=== PATIENT | male | born 2000 | race Caucasian/White ===

== ENCOUNTER 2019-10-30 17:12 | Emergency (ER) | payer SELFPAY ==
[2019-10-30 17:13] VITALS: BP 144/99; PULSE 120; RESP 16; TEMP 36.8; O2SAT 100; BMI 16.7
--- NOTE | 2019-10-30 18:25 | RAD_ITS ---
STUDY: X-RAY CHEST REASON FOR EXAM: Male, 18 years old. Shortness of breath TECHNIQUE: Frontal view of the chest COMPARISON: None. FINDINGS: The lungs are clear. There are no pleural effusions. There is no pneumothorax. The heart is normal in size. The visualized osseous structures are within normal limits. RAD/Chest 1 View (Portable) IMPRESSION: No acute thoracic pathology. Electronically Signed: Evan Delgado, at 18:42 EST Tel , Service support ,
[2019-10-30] MEDS: 0.9% Normal Saline 1,000 ML 1000 ML IV (18:40)
[2019-10-30] MEDS: DiphenhydrAMINE 50 MG/ML Syringe 25 MG IV (18:41)
[2019-10-30] MEDS: Metoclopramide 10 MG/2 ML Vial IV (18:41)
[2019-10-30 18:56] LABS: Absolute Lymphocyte Count 2.32 X10^3/uL (0.83-4.51); Basophil# 0.04 X10^3/uL; Basophil% 0.3 % (0-1); Eosinophil# 0.04 X10^3/uL; Eosinophils% 0.3 % (0-5); Hematocrit 47.6 % (40-54); Hemoglobin 16.1 g/dL (13.0-16.5); Lymphocyte # 2.32 X10^3/ul (4.0); Lymphocyte % 18.8 % (19-41); Mean Corp Hgb Conc 33.8 g/dL (32-36); Mean Corpuscular Hgb 29.5 pg (27.0-32.0); Mean Corpuscular Volume 87.3 fL (80-94); Mean Platelet Vol. 9.5 fl (6.2-12.0); Monocyte# 1.89 X10^3/uL; Monocyte% 15.3 % (0-10); NRBC Flagged by Analyzer 0 % (0-5); Neutrophil # 8.03 X10^3/uL (2.7-7.7); POSITIVE DIFFERENTIAL YES; Platelet Count 266 K/mm3 (150-450); RBC Distribution Width CV 11.9 % (11.6-14.6); RBC Distribution Width SD 38.3 fl (35.1-43.9); Red Blood Count 5.45 M/mm3 (4.6-6.2); White Blood Count 12.4 K/mm3 (4.4-11.0)
[2019-10-30 19:04] LABS: Differential Indicated SCAN CRITERIA MET
[2019-10-30 19:14] LABS: D-Dimer Quantitative (DVT/PE) 0.39 FEU/ug/m (0.27-0.49)
[2019-10-30 19:15] LABS: Anion Gap 2 (5-15); BUN 6 mg/dL (7-18); BUN/Creat Ratio 7.2 RATIO (10-20); Calcium,Total 8.8 mg/dL (8.5-10.1); Chloride 106 mmol/L (98-107); Creatinine, Serum 0.84 mg/dL (0.70-1.30); EST Glomerular Filtration Rate 124 mL/min (>60); Est Glom Filt Rate - Afr Amer 151 mL/min (>60); Glucose 79 mg/dL (74-106); Potassium 3.5 mmol/L (3.5-5.1); Sodium Level 140 mmol/L (136-145)
[2019-10-30 19:19] LABS: Carboxyhemoglobin Frac (CO) 2.4 % (0.0-1.5)
[2019-10-30 19:28] LABS: Platelet Estimate ADEQUATE (ADEQ); Red Cell Morphology NORM C+C NORMAL (NORM C&C)
--- NOTE | 2019-10-30 20:27 | ED.DEP ---
ED Disposition - Plan for ED Patient: Instructions: BRONCHITIS, No Antibiotic (Adult) Prescriptions: Benzonatate [Tessalon Perle] 200 mg PO TID PRN PRN #20 capsule PRN Reason: Cough Referrals: Hussain Retsrepo MD [Primary Care Provider] -
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
[2019-10-30 21:22] VITALS: BP 121/73; PULSE 94; RESP 17; RESP 19; O2SAT 98
[2019-11-01 13:58] LABS: Pathologist Review Reviewed
== END 2019-10-30 21:25 | disposition home or self-care (01) ==
LOC: ED 18:04
PROVIDERS: Emergency Provider Emergency Medicine; PCP Pediatrics
DX: J06.9 Acute upper respiratory infection, unspecified (principal); G43.909 Migraine, unspecified, not intractable, without status migrainosus
CPT/HCPCS: 71045; 80048; 82375; 84484; 85025; 85379; 87804; 96361; 96374; 96375; 99283; J7030; A4216

== ENCOUNTER 2020-03-25 16:17 | Emergency (ER) | payer SELFPAY ==
[2020-03-25 16:18] VITALS: BP 137/88; PULSE 107; RESP 18; TEMP 36.2; O2SAT 94; BMI 16.8
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
[2020-03-25] MEDS: Diphth,Pertuss(Acell),Tet Vac 0.5 ML Vial IM (17:11)
[2020-03-25 18:11] VITALS: BP 124/92; PULSE 92; RESP 15
== END 2020-03-25 18:17 | disposition home or self-care (01) ==
PROVIDERS: Emergency Provider Physician Assistant Medical; PCP Pediatrics
DX: S09.90XA Unspecified injury of head, initial encounter (principal); S01.01XA Laceration without foreign body of scalp, initial encounter; Y08.89XA Assault by other specified means, initial encounter; Z87.891 Personal history of nicotine dependence
CPT/HCPCS: 12002; 70450; 90471; 90715; 99283

== ENCOUNTER 2020-04-18 16:44 | Emergency (ER) | payer SELFPAY ==
[2020-04-18 16:46] VITALS: BP 116/69; PULSE 91; RESP 16; TEMP 36.6; O2SAT 97; BMI 17.4
--- NOTE | 2020-04-18 17:48 | ED.DCSUM_ITS ---
- ER Visit Summary Date of Service: 04/18/20 Chief Complaint: Staple removal History of Present Illness: The patient is a 19 M who presents for staple removal. Patient states he has staple placed in a scalp laceration 3 weeks ago. Patient states they were done here. Patient states he has not followed up with anybody for staple removal. Patient denies any fevers or chills. Patient denies any nausea or vomiting. Patient denies any visual changes. Patient does admit to some headaches. Patient denies any paresthesias or weakness. Physical Examination: Vital signs are stable. Patient is afebrile. Patient is in no acute distress. Skin is warm and dry. There is a healing scalp laceration of the left parietal area with [address] There is no active bleeding. There is no erythema or edema. There are no signs of infection. There is no discharge or drainage. Cranial nerves II through XII are intact. There are no focal motor or sensory deficits noted. Emergency Department Course and Treatment: The area was cleaned. The mike were removed intact without difficulty. Patient tolerated procedure well. Patient was instructed to follow-up with her primary care physician in 7 to 10 days. Patient was instructed return if worse in any way. Patient understood and was agreeable with the plan. All questions were answered. Disposition: Discharge home Impression: Staple removal This note was generated with [employer] dictation software. It may contain incorrect words, spelling, and punctuation that were not noted in review of the chart prior to signing ED Disposition - Plan for ED Patient: Disposition: Home or Assisted Living Diagnosis: Removal of staple Instructions: ED Stitches/Staple Removal No Complication Referrals: Hussain Restrepo MD [Primary Care Provider] - 1-2 Weeks
== END 2020-04-18 17:58 | disposition home or self-care (01) ==
PROVIDERS: Emergency Provider Emergency Medicine; PCP Pediatrics
DX: Z48.02 Encounter for removal of sutures (principal); F17.200 Nicotine dependence, unspecified, uncomplicated
CPT/HCPCS: 99282

== ENCOUNTER 2024-10-27 23:09 | Emergency (ER) | payer MEDICAID, SELFPAY ==
[2024-10-27 23:11] VITALS: BP 138/85; PULSE 89; RESP 16; TEMP 36.9; O2SAT 98; BMI 24.7
--- NOTE | 2024-10-27 23:31 | EX.ED.DYSGE1 ---
HPI History of Present Illness Chief Complaint: Abscess Detail of Chief Complaint: Left axillary abscess for 6 days. Informant: patient Onset/Context/Timing Onset: Days Context: Gradual Onset Timing: Continuous Current Severity: Mild Maximum Severity: Mild Narrative Narrative: Healthy 23-year-old male history of hepatitis. Complaining of left axillary abscess for about 6 days. Prior history that spontaneously ruptured. No fever or chills. No other complaints. Prior similar symptoms: Yes Recent Illness/Hospitalization: No PFSH PFSH Medical History no medical history Home Medications ?Medication ?Instructions ?Recorded ?Last Taken ?Type NK 03/25/20 Unknown History cephalexin 500 mg capsule 500 mg PO Q6 #40 CAPSULES 10/27/24 Unknown Rx Allergy/AdvReac Type Severity Reaction Status Date / Time No Known Allergies Allergy Verified 10/27/24 23:13 Social History Smoking Status: Current every day smoker tobacco type: cigarettes ROS ROS ED ROS Narrative Denies recent illness. Constitutional Constitutional ED: Denies chills Eyes Eyes: Denies blurry vision ENT ENT ED: Denies ear pain Cardiovascular Cardiovascular: Denies chest pain Respiratory/Chest Respiratory/Chest: Denies cough Gastrointestinal Gastrointestinal: Denies abdominal pain Genitourinary Genitourinary ED: Denies dysuria Musculoskeletal Musculoskeletal: Denies arthralgias Integumentary Denies abscess Neurologic Neurologic: Denies headache(s) Psychiatric Psychiatric: Denies anxiety Endocrine Endocrinology: Denies cold intolerance Hematologic/Lymphatic Hematologic/Lymphatic: Reports none Allergic/Immunologic Allergic/Immunologic ED: Denies mouth swelling, tongue swelling or urticaria EXAM Physical Exam Narrative Exam Narrative: 23-year-old male no acute distress. Vital signs stable afebrile. H EENT exam unremarkable. Moist mucous membranes. Neck nontender no lymphadenopathy. Lungs clear to auscultation bilaterally. Heart regular rhythm rate about 85 no murmur. Chest wall ribs nontender. Abdomen soft nontender. Moving all 4 extremities. Normal strength. Normal range of motion. Nontender no edema. Left axilla small quarter sized abscess left axilla. Tender to touch. Will attempt I&D. No surrounding cellulitis. Awake and alert. No focal motor deficits. Answering questions and following commands. Benign exam except for the abscess. Const Vital Signs: 10/27/24 23:11 Temperature 98.4 F Temperature Source Temporal Pulse Rate 89 Respiratory Rate 16 Blood Pressure 138/85 H Blood Pressure Mean 102 Pulse Ox 98 Oxygen Delivery Method Room Air Positive well nourished and well developed; Negative for obese, cachectic, contractures or unkempt General Appearance ED: well developed and NAD; Negative for unkempt, cachectic, contractures, cyanotic, diaphoretic or pallor Nutritional Appearance: Negative for cachectic or obese HEENT Reports moist mucous membranes Negative for trauma or tenderness Eyes PERRL and EOMs intact bilaterally General Eye ED: Negative for pale conjunctiva or scleral icterus Neck no lymphadenopathy, supple and no JVD General: Negative for tenderness Chest Wall inspection of chest normal and palpation of chest normal Resp normal respiratory effort and clear to auscultation bilaterally Effort and Inspection: Negative for retractions Auscultation: Negative for rales, rhonchi, wheezes or diminished lung sounds Cardio regular rate, regular rhythm, S1 normal heart sound, S2 normal heart sound and no murmurs Palpation: Negative for palpable S3 or palpable S4 Rate: Negative for bradycardia or tachycardic Rhythm: Negative for abnormal rhythm GI normal to inspection, nondistended, normoactive bowel sounds, non-tender, non-distended and no masses Palpation: soft; Negative for tender, guarding or rebound tenderness present Back/Spine no CVA tenderness Extremity normal to inspection Extremity Narrative: Left axillary abscess. General Extremety ED: Negative for edema or tenderness General Extremity: Negative for edema Neuro oriented x3 and CN's II-XII intact bilaterally Sensorium / Orientation: alert; Negative for orientation impaired, lethargic or stuporous Motor Exam: strength 5/5 throughout; Negative for general weakness or strength abnormal Psych mental status grossly normal Appearance: Negative for unkempt Attitude: No agitated Mood & Affect: Negative for depressed, anxious or tearful Skin no rashes or lesions noted, no wounds and skin turgor normal Skin Narrative: Left axillary subcu abscess. General Skin Exam: Negative for jaundice or pallor MDM MDM MDM Narrative Medical decision making narrative: 23-year-old male with left axillary subcu abscess. Locally anesthetized with let and then injected with lidocaine. Incised and drained. Discharged home on Keflex. Outpatient follow-up as needed. Patient doing well at 12:50 AM after the I&D. Procedures Other Procedures Procedure(s): Left axillary abscess. Let. Cleaned with Shur-Clens. Washed with saline. Locally anesthetized with plain lidocaine. Made about 1/2 inch incision. Was able to express about 2 cc of blood and pus. Broke up any loculations with blunt probe. Placed about 2 inches of quarter inch gauze. Patient tolerated procedure well. He was instructed on wound care and gauze removal in 4 days. Antibiotics 4 times a day. Return if worse or follow-up if not improving. Discharge Plan Triage Chief Complaint: Abscess ED Provider: Mati Orozco Dx/Rx/DC Orders Clinical Impression: Abscess of axilla, left Instructions: ED Abscess Incision And Drainage Prescriptions: New cephalexin 500 mg capsule 500 mg PO Q6 Qty: 40 0RF No Action NK Primary Care Provider: Care Physician,Roslyn Primary Referrals: Hussain Restrepo MD [Non-Staff] - 3-5 Days if not improving Activity Restrictions/Additional Instructions: Tylenol and Motrin for pain. Warm shower compresses to the area to help with drain. The antibiotic Keflex 4 times a day till gone. Follow-up with your doctor if not improving or return if worse. Pull the packing out in 4 days. If it falls I will just leave it out. Print Language: Kyrgyz Disposition Disposition: Home, Self Care
[2024-10-27] MEDS: Lidocaine 1% (20 ml mdv) 20 ML Vial 10 ML INFILT (23:37)
[2024-10-27] MEDS: Cephalexin 250 MG Capsule 500 MG PO (23:37)
[2024-10-27] MEDS: Lidocaine/Epi/Tetracaine 50 ML 1 APPLIC TOPICAL (23:41)
[2024-10-28 01:04] VITALS: BP 138/85; PULSE 64; RESP 16; TEMP 36.9; O2SAT 98
== END 2024-10-28 01:05 | disposition home or self-care (01) ==
LOC: ED 23:41
PROVIDERS: Emergency Provider Emergency Medicine; Visit Provider Emergency Medicine
DX: L02.412 Cutaneous abscess of left axilla (principal); F17.210 Nicotine dependence, cigarettes, uncomplicated
CPT/HCPCS: 10060; 99283

== ENCOUNTER 2024-12-07 20:00 | Emergency (ER) | payer MEDICAID, SELFPAY ==
[2024-12-07 20:01] VITALS: BP 138/96; PULSE 110; RESP 16; TEMP 36.6; O2SAT 99; BMI 23.1
--- NOTE | 2024-12-07 21:24 | EX.ED.DYSGE1 ---
HPI <MIRIAM Denny - Last Filed: 12/07/24 21:56> History of Present Illness Chief Complaint: General Illness Narrative Narrative: Patient presenting today with flulike symptoms he has had over the past 2 days. He reports nasal congestion, headache, sore throat, cough, and fatigue. He had to miss work today and is needing a work note. He denies fevers, abdominal pain, nausea, and vomiting. He is eating and drinking without difficulty. He reports a PMH of hepatitis B and C. PFSH <MIRIAM Denny - Last Filed: 12/07/24 21:56> PFSH Medical History no medical history Home Medications ?Medication ?Instructions ?Recorded ?Last Taken ?Type NK 03/25/20 Unknown History cephalexin 500 mg capsule 500 mg PO Q6 #40 CAPSULES 10/27/24 Unknown Rx Allergy/AdvReac Type Severity Reaction Status Date / Time No Known Allergies Allergy Verified 12/07/24 20:01 Family History no significant family his Surgical History no surgical history Social History Smoking Status: Never smoker ROS <MIRIAM Denny - Last Filed: 12/07/24 21:56> ROS ED Constitutional Constitutional ED: Denies chills or fever(s) ENT ENT ED: Reports rhinorrhea and sore throat Cardiovascular Cardiovascular: Denies chest pain Respiratory/Chest Respiratory/Chest: Reports cough; Denies dyspnea Gastrointestinal Gastrointestinal: Denies abdominal pain, nausea or vomiting Musculoskeletal Musculoskeletal: Denies arthralgias, myalgias or neck pain Integumentary Denies rash Neurologic Neurologic: Denies weakness EXAM <MIRIAM Denny - Last Filed: 12/07/24 21:56> Physical Exam Const Vital Signs: 12/07/24 20:01 12/07/24 20:08 12/07/24 21:30 Temperature 97.8 F 97.8 F Temperature Source Temporal Pulse Rate 110 H 94 Respiratory Rate 16 16 Respiratory Effort Normal Non-Labored Blood Pressure 138/96 H 138/96 H Blood Pressure Mean 110 110 Pulse Ox 99 98 Oxygen Delivery Method Room Air Positive well nourished, well developed and no apparent distress General Appearance ED: well developed HEENT Reports normocephalic, head/scalp atraumatic and TM's clear HEENT Narrative: Posterior pharynx erythematous, no tonsillar exudate, uvula midline, no trismus, no drooling. No tonsillar abscess. Tolerating secretions Tympanic Membrane ED: Yes TM's clear bilateral Mouth ED: Yes moist mucous membranes normal Eyes PERRL and EOMs intact bilaterally Neck full ROM and supple Chest Wall inspection of chest normal Resp normal respiratory effort and clear to auscultation bilaterally Cardio regular rate and regular rhythm Back/Spine normal ROM and normal to inspection Extremity normal to inspection and full ROM Neuro oriented x3, moves all extremities, no focal motor deficits and no sensory deficits noted Sensorium / Orientation: awake and alert Psych mental status grossly normal and thought process normal Skin no rashes or lesions noted and no wounds <Dr. Leonid Monsalve DO - Last Filed: 12/07/24 21:58> Physical Exam Const Vital Signs: 12/07/24 20:01 12/07/24 20:08 12/07/24 21:30 Temperature 97.8 F 97.8 F Temperature Source Temporal Pulse Rate 110 H 94 Respiratory Rate 16 16 Respiratory Effort Normal Non-Labored Blood Pressure 138/96 H 138/96 H Blood Pressure Mean 110 110 Pulse Ox 99 98 Oxygen Delivery Method Room Air MDM <MIRIAM Denny - Last Filed: 12/07/24 21:56> [facility] MDM Narrative Medical decision making narrative: Patient presenting with flulike symptoms that he has had over the past 2 days. He is well-appearing and in no acute distress, slightly tachycardic initially but afebrile. Examination is consistent with a viral illness. I did offer to test for COVID/influenza/RSV and patient declines. Low suspicion for strep given low Centor score. He is needing a work note. This will be given. Supportive care measures were discussed, return instructions given, patient discharged home in stable condition. <Dr. Leonid Monsalve DO - Last Filed: 12/07/24 21:58> [facility] Treatment and Re-Evaluation :: I have personally performed a face to face assessment of the patient and have reviewed the BRETT Note. I performed a substantive portion of the visit including all aspects of the following. My grimes findings include: History is 23-year-old male presenting with a several day history of viral-like syndrome including headache cough sore throat. He does not believe he is able to work today and needs a work note. He does not wish to have viral testing. Exam is patient is clinically well-appearing. Mild rhinorrhea/turbinate edema. He appears well-hydrated alert orientated lungs are clear. Medical Decison Making patient will be given a work note advised for rest fluid hydration Tylenol Motrin as needed. Discharge Plan Triage Chief Complaint: General Illness ED Midlevel Provider: Debi Ventura ED Provider: Lenoid Monsalve Dx/Rx/DC Orders Clinical Impression: URI (upper respiratory infection) Instructions: ED URI, Viral, No Abx (Adult) Prescriptions: No Action NK cephalexin 500 mg capsule 500 mg PO Q6 Qty: 40 0RF Stand Alone Forms: ED Work / School Excuse Primary Care Provider: Care Physician,No Primary Referrals: Care Physician,No Primary [Primary Care Provider] - Activity Restrictions/Additional Instructions: Follow-up with your PCP. Return for any worsening symptoms. you can take [id number] cold and flu medications as needed. Print Language: Comoran Disposition Disposition: Home, Self Care Discharge Date/Time: 12/07/24 21:46
[2024-12-07 21:30] VITALS: BP 138/96; PULSE 94; RESP 16; TEMP 36.6; O2SAT 98
== END 2024-12-07 21:46 | disposition home or self-care (01) ==
PROVIDERS: Emergency Provider Emergency Medicine; Visit Provider Emergency Medicine
DX: J06.9 Acute upper respiratory infection, unspecified (principal)
CPT/HCPCS: 99282